=== PATIENT | female | born 1995 | race Caucasian/White ===

== ENCOUNTER 2016-08-15 18:15 | Emergency (ER) | payer OTHER ==
[~2016-08-15] VITALS: Ht 157.5 cm; Wt 68.7 kg
[2016-08-15 18:27] VITALS: Ht 157.5 cm; Wt 68.7 kg
[2016-08-15] MEDS ORDERED: FENTANYL CITRATE INJ 50 MCG/1 ML 2 ML VIAL ONE (18:52)
--- NOTE | 2016-08-15 19:03 | EMERGENCY ROOM VISIT NOTE ---
History Report prepared by Pacheco: Saman Recinos Under the Supervision of: Dr. Carlos Castillo D.O. First contact with patient: 18:36 Chief Complaint: FACIAL PAIN/INJURY Stated Complaint: LT SIDE FACIAL SWEELING AND EAR PAIN History of Present Illness The patient is a 21 year old female who presents to the Emergency Room with complaints of constant left sided facial pain beginning this week. Her roommate was diagnosed with Mumps two weeks ago, and another friend currently has mononucleosis. She notes that she has never been vaccinated for Mumps until last week. She has the second of her two vaccinations scheduled for two weeks from now. The patient states that her symptoms are very similar to her roommate' s. She also complains of left sided facial and neck swelling. Nothing has improved her symptoms. Source of History: patient Onset: This week Position: head (left face) Timing: constant Modifying Factors (Relieving): other (none) Note: The patient also complains of left sided facial and neck swelling. Review of Systems See HPI for pertinent positives & negatives. A total of 10 systems reviewed and were otherwise negative. Past Medical & Surgical Medical Problems: (1) No Known Active Medical Problems Family History No pertinent family history stated. Social History Smoking Status: Never Smoker Housing Status: lives with roommate Occupation Status: [employer] student Current/Historical Medications No Active Prescriptions or Reported Meds Allergies Coded Allergies: No Known Allergies (Unverified , 08/15/16) Physical Exam Vital Signs Date Time Temp Pulse Resp B/P Pulse Ox O2 Delivery O2 Flow Rate FiO2 08/15/16 19:42 36.9 68 16 111/67 97 08/15/16 18:27 37.2 71 16 104/64 Room Air Physical Exam CONSTITUTIONAL/VITAL SIGNS: Reviewed / noted above. GENERAL: Non-toxic in appearance. INTEGUMENTARY: Warm, dry, and [place]. HEAD: Normocephalic. EYES: without scleral icterus or trauma. ENT/OROPHARYNX: clear and moist. LYMPHADENOPATHY/NECK: Is supple without lymphadenopathy or meningismus. The patient has moderate left-sided facial swelling in the mandibular area as well as just below the left jaw. There is also tenderness on exam. Intraorally she has a very prominent parotid gland duct with a small amount of discharge. RESPIRATORY: Lungs clear and equal. CARDIOVASCULAR: Regular rate and rhythm. GI/ABDOMEN: Soft and nontender. No organomegaly or pulsatile mass. No rebound or guarding. Normal bowel sounds. EXTREMITIES: Warm and well perfused. BACK: No CVA tenderness. NEUROLOGICAL: Intact without focal deficits. PSYCHIATRIC: normal affect. MUSCULOSKELETAL: Normally developed with good muscle tone. TRIAGE NURSING DOCUMENTATION REVIEWED. Medical Decision & Procedures Laboratory Results Test 08/15/16 19:40 Laboratory results as stated above per my review. ED Course 1836: Previous medical records were reviewed. The patient was evaluated in room B2. A complete history and physical examination was performed. 191: On reevaluation, the patient is resting comfortably. I discussed the results and findings with the patient. She verbalized agreement of the treatment plan. The patient was discharged home. Medical Decision Differential includes viral illness, influenza, streptococcal pharyngitis, meningitis, pneumonia, sinusitis, UTI, pyelonephritis, otitis media. This is a 21-year-old female who presents to the ED with a chief complaint of swelling and discomfort to the left jaw and neck area. The patient states that she has not had the mumps vaccine. One of her roommates had mumps 2 weeks ago. The patient reports that she received her first months vaccine 1 week ago. The patient's symptoms started over the past 24-48 hours. She denies any other significant symptoms. Denies sore throat, headaches, difficulty breathing, cough, rhinorrhea. Her exam reveals swelling to the left jaw mandibular area with tenderness on exam. Intraorally there is no abnormalities. Dentition is intact without evidence of abscess. Throat is clear. The patient's symptoms are consistent with mumps. Blood tests has been obtained. The patient was told to not return to school for 5 days. She is to wear a mask when around other people to prevent transmission. She was told to follow-up with [facility]. The patient was told to take Tylenol or Motrin as needed for pain. Impression Primary Impression: Mumps Scribe Attestation The scribe's documentation has been prepared under my direction and personally reviewed by me in its entirety. I confirm that the note above accurately reflects all work, treatment, procedures, and medical decision making performed by me. Departure Information Dispostion Home / Self-Care Prescriptions No Active Prescriptions or Reported Meds Referrals No Doctor, Assigned (PCP) Patient Instructions ED [place], [facility] Additional Instructions No school for the next 5 days. Wear a mask while around other persons. Take Tylenol / Motrin for pain. Follow-up with [facility] tomorrow. Wear your mask.
[2016-08-15 19:42] VITALS: BP 111/67; PULSE 68; TEMP 36.9; O2SAT 97
[2016-08-19 17:58] LABS: MUMPS VIRUS ANTIBODY IGM <1:20
== END 2016-08-15 19:46 | disposition home or self-care (01) ==
LOC: C.EDB 18:18
DX: B26.9 Mumps without complication (principal)